=== PATIENT | male | born 1985 | race Caucasian/White ===

== ENCOUNTER 2021-07-06 12:04 | Emergency (ER) | payer OTHER ==
[~2021-07-06] VITALS: Ht 185.4 cm; Wt 77.1 kg
[2021-07-06 12:57] LABS: BASOPHIL 0.4 % (0-2); EOSINOPHIL 5.9 % (0-5); HCT 34.7 % (42.0-52.0); LYMPHOCYTE 15.4 % (15-48); MCH 28.3 pg (25.0-31.0); MCHC 31.7 g/dL (32.0-36.0); MCV 89.2 fL (78.0-100.0); MONOCYTE 4.4 % (0-12); MPV 10.7 fL (6.0-9.5); NEUTROPHIL 73.4 % (41-80); NRBC 0; PLT 200 K/uL (150-400); RBC 3.89 M/uL (4.70-6.00)
[2021-07-06 13:08] LABS: BUN/CREAT RATIO (CALC) 11.5 RATIO; CREATININE 1.13 mg/dL (0.67-1.17); POTASSIUM 4.1 mmol/L (3.5-5.1)
[2021-07-06] MEDS ORDERED: BACTRIM DS TAB1 EACH PO (13:23)
[2021-07-06] MEDS ORDERED: CEPHALEXIN500 MG PO (13:23)
[2021-07-10] MEDS ORDERED: KEFLEX250 MG PO (15:16)
== END 2021-07-06 14:21 | disposition home or self-care (01) ==
LOC: FER 12:04
PROVIDERS: Emergency Medicine
DX: L02.414 Cutaneous abscess of left upper limb (principal); L03.114 Cellulitis of left upper limb; F15.10 Other stimulant abuse, uncomplicated; F17.200 Nicotine dependence, unspecified, uncomplicated
CPT/HCPCS: 36415; 80048; 85025; 87070; 87077; 87205; 96365; 96366; J3370; J7050